=== PATIENT | male | born 1985 | race Caucasian/White ===

== ENCOUNTER 2021-07-01 14:42 | Outpatient (REF) | payer BC, SELFPAY ==
[2021-07-01 18:09] LABS: C Reactive Protein 0.02 mg/dL (< or = 0.50); Calcium 9.5 mg/dL (8.4-10.2); Iron 100 mcg/dL (45-160); Percent Iron Saturation 35 % (15-50); Rheumatoid Factor < 15.0 IU/mL (<15.0); Total Iron Binding Capacity 289 mcg/dL (228-428); Unsaturated Iron Binding 189 ug/dL
[2021-07-01 18:17] LABS: Uric Acid 4.8 mg/dL (3.4-7.0)
[2021-07-01 18:23] LABS: Erythrocyte Sedimentation Rate 5 MM/HR (0-15)
[2021-07-01 18:29] LABS: Ferritin 132 ng/mL (20-250)
[2021-07-03 12:11] LABS: Calcium (PTHI) 9.1 mg/dL (8.6-10.3); PTHI 30 pg/mL (14-64)
[2021-07-04 07:42] LABS: Antibody to SS-A Antigen <1.0 NEG AI (<1.0 NEG); Antibody to SS-B Antigen <1.0 NEG AI (<1.0 NEG)
[2021-07-04 23:17] LABS: Anti Nuclear Antibody Screen POSITIVE (NEGATIVE)
== END 2021-07-01 14:43 | disposition home or self-care (01) ==
LOC: HO.MANLDS 14:42
PROVIDERS: PCP Physician Assistant; Visit Provider Physician Assistant
DX: M79.10 Myalgia, unspecified site (principal); M06.4 Inflammatory polyarthropathy
CPT/HCPCS: 36415; 82310; 82550; 82728; 83540; 83970; 84550; 85652; 86038; 86039; 86140; 86235; 86431

== ENCOUNTER → 2021-08-26 10:47 | Outpatient (REF) | payer BC, SELFPAY ==
--- NOTE | ~2021-08-26 | NM_ITS ---
EXAMINATION: NM BONE SCAN OF THE WHOLE BODY CLINICAL INFORMATION: Pleurodynia. COMPARISON: No previous bone scan is available for comparison. Radiographs of the chest dated 04/21/2017 and the left ribs dated 01/06/2018 are available for comparison. TECHNIQUE: Multiple gamma scintillation camera images of the whole body were performed 2.5 hours following the intravenous administration of 30 mCi Tc-99m MDP. FINDINGS: In the head, no significant abnormalities are present. In the thoracic cage and upper extremities, there is a tiny faint focus of increased activity in the superior aspect of the left humeral head. No rib abnormalities are present. In the spine, no significant abnormalities are noted. In the pelvis, no significant abnormalities are present. In the lower extremities, no significant abnormalities are present. No other definite bony abnormalities are noted. The urinary bladder and faint visualization of both kidneys are noted. NM/NM bone scan whole body IMPRESSION: Minimal abnormality in the left humeral head is nonspecific but likely degenerative or traumatic in etiology. No other significant abnormalities are present. In particular, the thoracic cage appears unremarkable.
== END ==
LOC: HO.NUCMED 10:47
PROVIDERS: PCP Physician Assistant; Visit Provider Physician Assistant
DX: R07.81 Pleurodynia (principal)
CPT/HCPCS: 78306; A9503

== ENCOUNTER → 2022-03-27 12:37 | Outpatient (REF) | payer BC, SELFPAY ==
--- NOTE | ~2022-03-27 | NM_ITS ---
EXAMINATION: RENAL DYNAMIC IMAGING STUDY WITH LASIX CLINICAL INFORMATION: Unspecified abdominal pain. Suspected renal pathology. COMPARISON: No prior relevant studies available for comparison. TECHNIQUE: Serial gamma scintillation camera images were obtained over the posterior trunk during the initial transit and subsequent distribution of a bolus intravenous injection of 10 mCi of Tc-99m DTPA. At 30 minutes later, 40 mg of Lasix was administered intravenously and an additional 25 minutes of images obtained. A postvoid planar images of the kidneys and urinary bladder was also obtained. FINDINGS: Initial rapid sequence images show prompt and bilaterally symmetrical flow to the kidneys. Subsequent sequential static images obtained up to 30 minutes show shows symmetric radiotracer uptake, concentration and excretion into the nondilated pelvicalyceal system and both ureters. Following Lasix administration, prompt symmetric excretion of radiotracer activity from the collecting system across the ureter was noted. The T-1/2 washout times following Lasix administration are: Left 7.6 minutes and right 3.3 minutes. The relative function of the two kidneys based on the 2-3 minute images are: Left 54.5% and right 45.5%. No evidence of any reflux on post void images. NM/NM renal flow w pharm int IMPRESSION: 1. Normal scintigraphic appearance of both kidneys with relative split function percentage of 24.5% on the left and 45.5% on the right. 2. No scintigraphic evidence of urinary tract obstruction on post Lasix images. 3. No evidence of any reflux on post void images.
== END ==
LOC: HO.NUCMED 12:37
PROVIDERS: PCP Internal Medicine; Visit Provider Urology
DX: R10.9 Unspecified abdominal pain (principal); G89.29 Other chronic pain
CPT/HCPCS: 78708; A9539; J1940

== ENCOUNTER 2022-10-13 14:41 | Outpatient (REF) | payer BC, SELFPAY ==
[2022-10-13 15:46] LABS: MANUAL DIFF FLAG NO
[2022-10-13 17:30] LABS: Basophils Percent Auto 0.4 % (0-2); Eosinophils Absolute Auto 0.1 X10*3/uL (0.0-0.4); Eosinophils Percent Auto 1.2 % (0-4); Hematocrit 43.4 % (42.0-52.0); Hemoglobin 14.9 g/dl (14.0-18.0); Imm Gran Abs Auto 0.01 X10*3/uL (0.00-0.03); Imm Gran Pct Auto 0.2 % (0.0-0.4); Lymphocytes Absolute Auto 1.8 X10*3/uL (1.2-4.9); Lymphocytes Percent Auto 35.5 % (20-40); Mean Corpuscular HGB Conc 34.3 g/dl (31.0-36.0); Mean Corpuscular Hemoglobin 31.1 pg (27.0-33.0); Mean Corpuscular Volume 90.6 fL (80.0-98.0); Mean Platelet Volume 10.4 fL (9.4-12.4); Monocytes Absolute Auto 0.6 X10*3/uL (0.1-1.2); Monocytes Percent Auto 11.4 % (2-11); Neutrophils Absolute Auto 2.6 x10*3/uL (2.0-8.3); Neutrophils Percent Auto 51.3 % (45-73); Platelet Count 228 X10*3/uL (160-400); Red Blood Count 4.79 X10*6/uL (4.60-5.80); Red Cell Distribution Width 11.2 % (11.0-16.0)
[2022-10-13 17:40] LABS: Osmolality Urine 589 mosm/kg (373-1093)
[2022-10-13 17:56] LABS: Alanine Aminotransferase 24 U/L (0-40); Albumin Level 4.5 g/dL (3.5-5.0); Alkaline Phosphatase 59 U/L (39-117); Anion Gap 14 (12-20); Aspartate Amino Transferase 27 U/L (5-37); Bilirubin Total 0.5 mg/dL (0.0-1.0); Blood Urea Nitrogen 29 mg/dL (9-16); C Reactive Protein < 0.04 mg/dL (< or = 0.50); Calcium 9.4 mg/dL (8.4-10.2); Carbon Dioxide 27 mmol/L (22-29); Chloride 102 mmol/L (96-108); Estimated Glomerular Filt Rate > 60; Glucose Random 83 mg/dL (60-115); Lactate Dehydrogenase 174 U/L (118-273); Rheumatoid Factor < 13.0 IU/mL (<15.0); Sodium 139 mmol/L (135-145); Total Protein 7.6 g/dL (6.5-8.0)
[2022-10-14 08:34] LABS: Lyme Abs Screen <0.90 index
[2022-10-14 12:58] LABS: Antibody to SS-A Antigen <1.0 NEG AI (<1.0 NEG); Antibody to SS-B Antigen <1.0 NEG AI (<1.0 NEG)
[2022-10-14 14:33] LABS: Cyclic Citrullinated Peptide <16 UNITS; IgA 458 mg/dL (47-310); IgG 1450 mg/dL (600-1640); IgM 99 mg/dL (50-300)
[2022-10-15 12:23] LABS: A. Phagocytophilum Ab IgG <1:64 (<1:64); A. Phagocytophilum Ab IgM <1:20 (<1:20); E. Chaffeensis Ab IgG <1:64 (<1:64); E. Chaffeensis Ab IgM <1:20 (<1:20)
[2022-10-16 15:18] LABS: Aldolase 7.7 U/L (<=8.1)
== END 2022-10-13 14:42 | disposition home or self-care (01) ==
LOC: HO.LAB 14:41
PROVIDERS: PCP Internal Medicine; Visit Provider Physician Assistant
DX: M33.21 Polymyositis with respiratory involvement (principal); Z78.9 Other specified health status
CPT/HCPCS: 80053; 82085; 82550; 82784; 83615; 83935; 85025; 86140; 86200; 86235; 86431; 86617; 86618; 86666; 86757